=== PATIENT | male | born 1970 ===

== ENCOUNTER 2017-08-28 06:05 | Day surgery (SDC) | payer OTHER ==
[2017-08-22 08:48] VITALS: BMI 32.5
[2017-08-28] MEDS ORDERED: Lactated Ringer's 1,000 ML IV ONE ×2 (06:49→10:00)
[2017-08-28] MEDS ORDERED: Midazolam 2 MG/2 ML VIAL ONE (07:08)
[2017-08-28] MEDS ORDERED: Propofol 10 mg/ml Inj (20 ML) ONE (07:08)
[2017-08-28] MEDS ORDERED: Rocuronium 10 mg/ml (5 ml) ONE (07:08)
[2017-08-28] MEDS ORDERED: ePHEDrine 50 mg/ml Inj ONE (07:08)
[2017-08-28] MEDS ORDERED: Succinylcholine 200 mg/10 ml Inj IV ONE (07:09)
[2017-08-28] MEDS ORDERED: Phenylephrine 10 mg/ml Inj ONE (07:09)
[2017-08-28] MEDS ORDERED: Morphine 1 mg/ml preservative-free Inj(Duramorph) ONE (07:19)
[2017-08-28] MEDS ORDERED: EPINEPHrine 1 mg/ml (1:1000) Inj ONE (07:19)
[2017-08-28] MEDS ORDERED: Lidocaine 2% w Epi 1:100,000 Inj IJ ONE (07:20)
[2017-08-28] MEDS ORDERED: Bupivacaine 0.5% Inj(30mL) ONE (07:20)
[2017-08-28] MEDS ORDERED: Sodium Chloride 0.9% 0 ML IV ONE (07:20)
[2017-08-28] MEDS ORDERED: Ropivacaine 0.5% 30ML IV ONE (07:52)
--- NOTE | 2017-08-28 08:28 | CARD ---
APPROVED REPORT EKG Measurement Heart [id number] <Conclusion> Normal sinus rhythm Right bundle branch block Abnormal ECG
[2017-08-28] MEDS ORDERED: Bupivacaine 0.5% 50 ML IJ ONE (09:55)
[2017-08-28] MEDS ORDERED: Oxycodone/Acetaminophen 5/325 mg Tab PO PRN ×2 (10:07)
--- NOTE | 2017-08-28 10:12 | PCM.SURG1 ---
Surgeon's Initial Post Op Note - Surgeon's Notes Surgeon: Dr. Megan Marcial MD [place] Machine Operator: Dr. Omega Lopez, DPM, Armando Porras PGY2, Seamus Begum PGY1 Type of Anesthesia: General Endo Anesthesia Administered By: Dr. Haney Pre-Operative Diagnosis: Lateral ankle instability with ankle pain, right foot Operative Findings: See dictation report. M- 3-0 vicryl, 3-0 prolene, xeroform , posterior splint. I- 0.5% marcaine plain post-op, popliteal block Post-Operative Diagnosis: Same Operation Performed: 1) Right ankle arthroscopy. 2) Lateral collateral ligament Brostrom procedure Specimen/Specimens Removed: None Estimated Blood Loss: EBL {In ML}: 5 Blood Products Given: N/A Drains Used: No Drains Post-Op Condition: Good Date of Surgery/Procedure: 08/28/17 Time of Surgery/Procedure: 10:13
[2017-08-28] MEDS ORDERED: HYDROmorphone 0.5 mg/0.5 ml ISec IVP PRN (10:41)
[2017-08-28 10:45] VITALS: RESP 18
--- NOTE | 2017-08-28 10:45 | PCM.ANESB2 ---
Popliteal Nerve Block - Popliteal Nerve Block Date of Procedure: 08/28/17 Procedure Performed: Popliteal Nerve Block Right - Procedure Popliteal Nerve Block: This procedure was explained to the patient that it is for post-operative pain management. Consent was obtained after a thorough discussion with the patient regarding the benefits and possible complications of local anesthetic block of the sciatic nerve at the popliteal level. The patient was brought to the operating room and standard monitors are applied. Time-out was held with the circulating nurse to confirm the appropriate block. The patient's operative leg was gently raised and supported and the groove in between the biceps femoris and vastus lateralis muscles was carefully palpated. The skin approximately 8cm above the popliteal crease was then marked. The ultrasound transducer was then applied to the posterior thigh approximately 8cm above the popliteal crease in the transverse plane and the sciatic nerve before its division was visualized lateral to the popliteal artery and in between the bicep femoris and semimembranosus/semitendinosus muscles. After identification, the lateral portion of the thigh was prepped with chloroprep solution. At this point, a # 21 gauge Stimuplex insulated 4 inch needle was inserted into pre-marked area and advanced in a perpendicular direction. The needle was inserted above the ultrasound transducer in-plane towards the sciatic nerve in a [id number] direction. Needle advancement was performed carefully under direct ultrasound visualization. Nerve stimulator was used and dorsiflexion of the __0.3___ foot was elicited at a current of MA. After repeated negative aspiration, ___5__cc of __ropivavacine 0.5___ % was injected and this was flowed with ___15___ cc of __ropivacaine 0.5__% . Under ultrasound guidance the local anesthetics were observed surrounding sciatic nerve . The needle was removed intact and sterile dressing was applied. The patient tolerated the popliteal nerve block well with stable vital signs.
[2017-08-28 12:55] VITALS: PULSE 105; TEMP 97.5
[2017-08-28 13:51] VITALS: BP 132/85; O2SAT 96
--- NOTE | 2017-08-28 15:49 | CP.SDSHP ---
Same Day Surgery H & P - History Proposed Procedure: 1) Right ankle arthroscopy 2) Right ankle Lateral collateral ligament Brostrom procedure Pre-Op Diagnosis: Lateral ankle instability with ankle pain, right foot - Allergies Allergies: Allergies No Known Allergies Allergy (Verified 08/22/17 08:48) - Physical Exam Vital Signs: Vital Signs 08/28/17 08/28/17 08/28/17 10:30 10:45 11:00 Temperature 96.5 F L 96.8 F L 97.4 F L Pulse Rate 98 H 89 99 H Respiratory 18 18 18 Rate Blood Pressure 115/51 L 142/83 149/94 H O2 Sat by Pulse 99 99 98 Oximetry 08/28/17 08/28/17 08/28/17 11:15 11:30 11:45 Temperature Pulse Rate 97 H 102 H 105 H Respiratory 18 18 18 Rate Blood Pressure 138/74 143/93 H 128/76 O2 Sat by Pulse 98 98 99 Oximetry 08/28/17 08/28/17 08/28/17 12:00 12:15 12:20 Temperature 97.5 F L Pulse Rate 107 H 104 H 105 H Respiratory 18 18 18 Rate Blood Pressure 130/80 128/93 H 124/81 O2 Sat by Pulse 99 99 95 Oximetry 08/28/17 08/28/17 12:55 13:30 Temperature 97.5 F L Pulse Rate 105 H Respiratory 18 Rate Blood Pressure 132/85 O2 Sat by Pulse 95 96 Oximetry Mental Status: Alert & Oriented x3 - {Optional Preform as Required} Integument: WNL - Impression Impression: Pt was seen and examined in SDS. Pt NPO status was confirmed. All pre-op testing and clearance in chart. Pt has exhausted all conservative treatment at this time and is opting for surgical intervention. Pt was explained procedure and post-operative course. All pt's questions were answered to satisfaction. No guarantees were made. Pt understands all risks, benefits and complications of procedure. Pt will follow-up with Dr. Marcial within 1 week of surgery - Date & Time Date: 08/28/17 Time: 07:30 Short Stay Discharge - Short Stay Discharge Admitting Diagnosis/Reason for Visit: RIGHT ANKLE TEAR Disposition: HOME/ ROUTINE Referrals: Charan Cazares Jr., MD [Primary Care Provider] - Instructions: RICE Therapy (GEN) Additional Instructions (Diet, Activity): -Patient in good/stable condition for discharge home -Pt to resume medications per medical reconciliation -Resume regular diet -Please keep dressing clean, dry, & intact to surgical site -Use plastic bag over bandage for showering -Wear post op shoe at all times when ambulating -Call clinic if you see signs of infection (redness, swelling, malodor) -Patient has an appointment with Dr. Marcial in office/clinic scheduled. Patient will see Dr. Marcial within 1 week for post-op check Progress Note/Discharge Note with Instructions: - Patient evaluated bedside in recovery s/p surgical procedure. - After surgical procedure patient in NAD - (+) Void, (+) Appetite - Capillary refill time <3s and NVSI intact. - Patient denies complaints at this time - Post operative instructions and plan of care explained to patient at length. - Pt. acknowledges understanding. - Patient stable for DC
--- NOTE | 2017-08-28 23:27 | OP ---
PROCEDURE DATE: 08/28/2017 ATTENDING PHYSICIAN: Megan Marcial MD DIRECTOR OF INTEGRATED MARKETING: Omega Mortensen DPM PREOPERATIVE DIAGNOSES: 1. Right ankle full thickness anterior talofibular ligament tear. 2. Right ankle synovitis. 3. Calf swelling and instability. POST-OPERATIVE DIAGNOSES: 1. Right ankle synovitis. 2. Grade 2 chondromalacia of the talus. 3. Anterior ankle impingement. 4. Ankle instability, anterior talofibular ligament tear. PROCEDURES: 1. Right ankle arthroscopy, extensive synovectomy. 2. Chondroplasty of the talus. 3. Decompression of the anterior distal tibia. 4. Open ligament repair of the anterior talofibular ligament and calcaneofibular ligament with Brostrom procedure. 5. Platelet-rich plasma injection. ANESTHESIA TYPE: General. EBL: 5 mL. SPECIMENS: None. TOURNIQUET TIME: 45 minutes. COMPLICATIONS: None. INDICATIONS: After failing a course of non-operative therapy, the patient elected to undergo the above procedure. In the office, the risks and possible complications of ankle arthroscopy were discussed in detail with the patient. These risks include but are not limited to continued pain, lack of motion, infection, vascular injury, DVT / PE, nerve injury including superficial peroneal nerve dysfunction, reflex sympathetic dystrophy, compartment syndrome, unforeseen medical and/or anesthesia complications, limb loss, and even . The patient expressed an understanding of the risks and possible benefits of the procedure, and is also aware of the alternatives to surgery. An informed consent was obtained, and was checked immediately pre-op. The patient's knee injuries requiring surgery are the result of an accident/incident that occurred at work. PROCEDURE: The patient was correctly identified in the holding area and the right ankle was marked with the surgeons initials. The patient was transported to the operating room and placed in the supine position, general anesthesia was obtained, a pre-operative orthopaedic exam revealed grade 2 anterior translation of the talus. Dorsiflexion to +5, plantarflexion to 30. The lower extremity was prepped and draped in the standard fashion. A well-padded tourniquet was applied to the patient's thigh. Time out was completed confirming the correct operative site. Esmarch was used to exsanguinate the leg and tourniquet was inflated to 300 mmHg. A standard anteromedial viewing portals were made, medial to the tibialis anterior tendon with a #11 blade after sub-dermal 1% Lidocaine with Epinephrine injection. The ankle joint was distended with normal saline and epinephrine in a 1:1,000,000 mixture, at an initial pressure of 35 mmHg. The arthroscope was inserted from the anteromedial portal and moved lateral to sarah the incision site for anterolateral portal. Extreme care was taken to protect the superficial peroneal nerve. Sarah was made just lateral to Peroneus tertius tendon. Using 11 blade, only superficial skin incision was made. Then, using the clamp, deep capsule was dissected and anterolateral portal was created using blunt dissection. The arthroscopic probe was inserted, and all compartments of the ankle were sequentially visualized. FINDINGS: Arthroscopic findings: 1. Extensive synovitis. 2. Grade 2 chondromalacia of the talus. 3. Anterior distal tibia impingement. The motorized shaver was used to mechanically debride the loose, fibrillated and fragmented chondral edges of the anterior talus to a stable border. Extreme care was taken to not disrupt the adjacent chondral surface. The edges of injured chondral area were probed to ensure stability after the shaver was withdrawn from the knee. The motorized shaver was used to perform a synovectomy of the medial and lateral gutters. The hypertrophic synovium was resected with minimal bleeding. No synovial incarceration was noted after synovectomy when the knee was put through a full passive range of motion. Due to injuries to the anterolateral region resulting in organized hypertrophic scar, inflamed synovium and bone spurs at the anterolateral edge of distal tibia causing impingement and pain, Using the motorized shaver, bone spurs was removed and inflamed/hypertrophic scar was also resected. Afterwards, ankle was taken through range of motion and a significant improvement in dorsiflexion was noted. The patient's complete ATFL tear and ankle instability was addressed with an open Brostrom procedure. A curvilinear incision was made centering over the distal tip of the fibula using a #15 blade. Skin dissection was taken down until the remnant of the ATFL and CFL ligament were exposed. Dissection was carried down until to free the ligament and capsule of the talus and the distal fibula. For fixation, we utilized Arthrex 3 mm SutureTak, 3 SutureTaks were placed into the distal fibula with needles, which were sutured in pants on vest fashion with ankle in neutral and eversion. The sutures were secured with a second row of ankles. The final ankle stability was checked after the fixation was found to be stable. The wound was copiously irrigated. The skin was closed in a standard manner. Afterwards, 30 mL of the patient's blood was aspirated, it was spun in a centrifuge to separate the platelet-rich plasma layer, and at the end, 6 mL of PRP was injected into the ankle joint. WASHOUT: The medial and lateral gutters were checked for loose bodies. At this point, the ankle was then copiously irrigated utilizing the irrigation solution. Arthroscopic washout was performed with free flowing outflow through the cannula with the arthroscope removed. CLOSURE: Portal closure was then accomplished utilizing sutures, and sterile dressing was applied consisting of Xeroform, 4 x 4's, sterile gauze, and two ABD's with a 6" yokasta wrap. Anesthesia was reversed and the patient was transferred to the recovery room in stable condition, having tolerated the procedure well. The attending surgeon was scrubbed and present throughout the critical portions of the case, including all of the intra-articular arthroscopic procedures. We are going to follow up the patient in the office in 7 to 10 days. During this procedure, I was assisted by Omega Mortensen DPM, who assisted in positioning the patient on the operating room table as well as transferring the patient from the operating room table to the recovery room stretcher. In addition, Omega Mortensen DPM, assisted me during the actual operative procedure by positioning the patient's extremity to allow for easier arthroscopic access to all areas of the joint. The presence Omega Mortensen DPM, as my operative assistant floor covering printer was medically necessary to ensure the utmost safety of the patient in the pre, intra-, and post-operative periods. Megan Marcial MD
== END 2017-08-28 16:10 | disposition home or self-care (01) ==
LOC: H.OPSURG 06:05
PROVIDERS: ATTEND Orthopaedic Surgery
DX: M65.871 Other synovitis and tenosynovitis, right ankle and foot (principal); R73.03 Prediabetes; E78.5 Hyperlipidemia, unspecified; G47.30 Sleep apnea, unspecified; M25.871 Other specified joint disorders, right ankle and foot; M94.271 Chondromalacia, right ankle and joints of right foot
CPT/HCPCS: 0232T; 29892; 29999; 82948; 93005; 97116; 97161; G0460; G8978; G8979; G8980; J0330; J0690; J2001; J2250; J2370; J2405; J2704; J2765; J3010; J7030; J7120; L1920